=== PATIENT | male | born 2000 | race Caucasian/White ===

== ENCOUNTER 2023-09-30 15:59 | Emergency (ER) | payer OTHER | END 2023-09-30 17:24 | disposition home or self-care (01) | LOC: CSHERS 15:59 | DX: S16.1XXA Strain of muscle, fascia and tendon at neck level, initial encounter (principal); S09.90XA Unspecified injury of head, initial encounter; R94.02 Abnormal brain scan; V89.2XXA Person injured in unspecified motor-vehicle accident, traffic, initial encounter | CPT/HCPCS: 70450; 72125 ==